=== PATIENT | male | born 1930 | race Caucasian/White ===

== ENCOUNTER 2016-04-15 22:32 | Emergency (ER) | payer OTHER ==
[~2016-04-15] VITALS: Ht 180.3 cm; Wt 99.3 kg
[~2016-04-15 22:32] MED LIST: BACTRIM,SEPT1 TABLET PO; CO Q-1010 MG PO; FISH OIL 1,0001 EAC7 PO; FLOMAX0.4 MG PO; LIPITOR80 MG PO; LOPRESSOR100 M1 PO
[2016-04-15 23:45] LABS: ADD MIUA? YES; BILIRUBIN NEGATIVE; BLOOD SMALL; COLOR YELLOW ((YELLOW)); GLUCOSE (STRIP) NEGATIVE; KETONES NEGATIVE; LEUKOCYTES LARGE; NITRITE NEGATIVE; PH, URINE 6.5 (5-8); PROTEIN (STRIP) 30; SPECIFIC GRAVITY 1.015 (1.000-1.030); UROBILINOGEN 0.2 MG/DL (0.2-1.0)
[2016-04-16 00:15] LABS: BACTERIA 2+; CASTS NONE SEEN /LPF; CRYSTALS NONE SEEN; EPITHELIAL CELLS NONE SEEN; MUCUS NONE SEEN; RED BLOOD CELLS NONE SEEN /HPF (0-5); UCUL ADDED? YES; WHITE BLOOD CELLS TNTC /HPF (0-5)
[2016-04-16] MEDS ORDERED: CIPRO500 MG PO ×2 (01:52→02:09)
[2016-04-16 02:11] VITALS: BP 137/79
== END 2016-04-16 02:12 | disposition home or self-care (01) ==
LOC: EME 22:32 → EXP 22:32
DX: N39.0 Urinary tract infection, site not specified (principal); N40.1 Benign prostatic hyperplasia with lower urinary tract symptoms; I10 Essential (primary) hypertension; E78.5 Hyperlipidemia, unspecified; Z87.891 Personal history of nicotine dependence
CPT/HCPCS: 81003; 87077; 87086; 87186; 99281; 99284